=== PATIENT | male | born 1980 | race Caucasian/White ===

== ENCOUNTER 2017-05-16 18:06 | Emergency (ER) | payer OTHER ==
[~2017-05-16] VITALS: Ht 175.3 cm; Wt 88.5 kg
[2017-05-16 18:09] VITALS: Ht 175.3 cm; Wt 88.5 kg
[2017-05-16] MEDS ORDERED: IBUPROFEN 600 MG TAB PO ONE (18:30)
--- NOTE | 2017-05-16 19:37 | RADRPT ---
PROCEDURE: XR Ankle. CLINICAL INDICATION: Left ankle pain. Injury. TECHNIQUE: Three views of the left ankle were submitted for interpretation. COMPARISON: None. FINDINGS: 0.1 x 1.1 cm calcific density overlies the dorsal aspect of the tarsometatarsal joints on lateral vi ew and may represent a flake fracture. Bony structures otherwise intact. The joint spaces are intact. The bony mineralization is normal. Multiple punctate calcific density foreign bodies are seen overlying the dorsal aspect of the foot n umbering more than 10 in quantity and measuring 1-2 mm each. IMPRESSION: 1. Thin linear calcific density overlying the soft tissues of the dorsal aspect of the foot at the metatarsal phalangeal joints, seen only on lateral view and represent a flake fracture or radiopaque foreign body. 2. Numerous 1-2 mm radiopaque foreign bodies overlying soft tissues of the dorsal aspect of the mid foot, some of which project over bone and may be within bone. This finding can be clarified with CT scan, if clinically indicated. RPTAT: [facility] .Nicola Ferrer MD, Date Time Electronically viewed and signed by .Nicola Ferrer MD, on 05/16/2017 19:37 .M/
[2017-05-16] MEDS ORDERED: IBUP-1542 PO (19:59)
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
[2017-05-16 20:08] VITALS: BP 145/76; PULSE 86; RESP 17; TEMP 98.3
== END 2017-05-16 20:08 | disposition home or self-care (01) ==
LOC: FTE 18:06
DX: S99.912A Unspecified injury of left ankle, initial encounter (principal); X50.9XXA Other and unspecified overexertion or strenuous movements or postures, initial encounter; Y92.9 Unspecified place or not applicable
CPT/HCPCS: 73610; Z7502; Z7610

== ENCOUNTER 2017-08-29 10:13 | Emergency (ER) | payer OTHER ==
[~2017-08-29] VITALS: Ht 175.3 cm; Wt 92.8 kg
[~2017-08-29 10:13] MED LIST: IBUP-1542 PO
[2017-08-29 10:14] VITALS: Ht 175.3 cm; Wt 92.8 kg
[2017-08-29] MEDS ORDERED: DIPHTH/TET/ACEL PERTUSS (ADULT) 0.5 ML VIAL IM* ONE (11:00)
[2017-08-29] MEDS ORDERED: LIDOCAINE 1% (MDV) 20 ML INJ SC ONE (11:00)
[2017-08-29] MEDS ORDERED: HYDROCODONE/APAP (5/325) TAB PO ONE (11:00)
--- NOTE | 2017-08-29 11:05 | ERD ---
ER Documentation Chief Complaint Chief Complaint Lac on left 1st finger x 20 minutes, cut at work with stretch box tender HPI This is a 36-year-old male presents to the emergency department today complaining of a laceration to his left thumb after cutting of with a stretch box tender at work lately 30 minutes prior to arrival. States he is not up-to-date on his vaccines. States he has not taken a medication for the pain. ROS All systems reviewed and are negative except as per history of present illness. Medications Home Meds Active Scripts Cephalexin* (Keflex*) 500 Mg Capsule, 500 MG PO QID for 7 Days, CAP Prov:MAIA BETANCOURT PA-C 08/29/17 Acetaminophen* (Tylophen*) 500 Mg Capsule, 1 CAP PO Q6H Y for PAIN AND OR ELEVATED TEMP, #30 CAP Prov:MAIA BETANCOURT PA-C 08/29/17 Naproxen* (Naprosyn*) 500 Mg Tablet, 500 MG PO BID Y for PAIN AND/OR INFLAMMATION, #30 TAB Prov:MAIA BETANCOURT PA-C 08/29/17 Ibuprofen* (Motrin*) 600 Mg Tab, 600 MG PO Q6, #20 TAB Prov:ROMAN LUCERO MD 05/16/17 Allergies Allergies: Coded Allergies: No Known Allergy (Unverified , 08/29/17) PMhx/Soc Medical and Surgical Hx: pt denies Medical Hx, pt denies Surgical Hx History of Surgery: No Anesthesia Reaction: No Hx Neurological Disorder: No Hx Respiratory Disorders: No Hx Cardiac Disorders: No Hx Psychiatric Problems: No Hx Miscellaneous Medical Probl: No Hx Alcohol Use: No Hx Substance Use: No Hx Tobacco Use: No Physical Exam Vitals Vital Signs Date Time Temp Pulse Resp B/P Pulse Ox O2 Delivery O2 Flow Rate FiO2 08/29/17 10:14 98.3 97 18 140/88 99 Physical Exam Const: NAD Head: Atraumatic Eyes: Normal Conjunctiva ENT: Normal External Ears, Nose and Mouth. Neck: Full range of motion..~ No meningismus. Resp: Clear to auscultation bilaterally Cardio: Regular rate and rhythm, no murmurs Skin: Left thumb with evidence of a 3 cm laceration that is curved along medial border. MSK: left thumb with no obvious deformity. Evidence of laceration distal aspect of thumb. Tenderness to palpation diffusely over IP and MCP joint. Full active range of motion. Pulses 2+. Distal neurovascularly intact. Neur: Awake and alert Psych: Normal Mood and Affect Results 24 hrs Current Medications Medications (Trade) Dose Ordered Sig/Sandra Route PRN Reason Start Time Stop Time Status Last Admin Dose Admin Acetaminophen/ Hydrocodone Bitart ([place] (5/325)) 1 tab ONCE ONCE PO 08/29/17 11:00 08/29/17 11:01 DC 08/29/17 11:14 Diphtheria/ Tetanus/Acell Pertussis (Adacel) 0.5 ml ONCE ONCE IM* 08/29/17 11:00 08/29/17 11:01 DC 08/29/17 11:13 Lidocaine (Xylocaine 1% (Mdv) 20 ml) 20 ml ONCE ONCE SC 08/29/17 11:00 08/29/17 11:01 DC DIAGNOSTIC IMAGING REPORT Patient: AIDE PIERSON : 1980 Age: 36 Sex: M MR #: [id number] DOS: 08/29/17 0000 Ordering MD: MAIA BETANCOURT PA-C Location: [facility] Room/Bed: PROCEDURE: XR Thumb. CLINICAL INDICATION: Left thumb pain following injury, laceration TECHNIQUE: Three views of the left thumb are available for review. COMPARISON: None available FINDINGS: The osseous structures demonstrate normal alignment and mineralization. No acute fracture or dislocation is seen. The joint spaces are well maintained. The soft tissues are unremarkable. There is a tiny, 1 mm radiopaque density within the volar soft tissues overlying the first distal phalanx. IMPRESSION: Tiny, 1 mm radiopaque density within the volar soft tissues overlying the first distal phalanx. No acute fracture identified. RPTAT: HH .Kristy Donovan MD, Date Time Electronically viewed and signed by .Kristy Donovan MD, on 08/29/2017 12 :32 .G/ CC: MAIA BETANCOURT PA-C Procedures/MDM This is a right-handed 36-year-old male who presents the emergency department today complaining of a laceration that he sustained with a stretch box tender on his left thumb approximately 30 minutes prior to arrival. On physical exam there is evidence of a 3 cm superficial curved laceration along his left thumb that goes into his fingernail. Patient thinks that he "hit the bone". Patient did have some tenderness over his MCP and IP joint and therefore did obtain imaging. Also explained to the patient he requires sutures at this time to help control the bleeding as well. I explained the risks and benefits of the procedure and patient agreed to proceed. Patient tolerated procedure well and there were no complications. Tetanus was updated here in the emergency department Per the radiology report images of the left thumb show a tiny 1 mm radiopaque density within the volar soft tissues overlying the first distal phalanx there is no acute fracture identified. There is no dislocation. 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 I think this is likely the source of the 1 mm radiopaque density as there is no evidence of foreign body in the laceration. I do Not feel the area needs to be explored further. Laceration Repair by me: Anesthesia: 1% lidocaine locally 4 cc Location: left thumb Tendon/Joint/Nerves: No injury Foreign body: None detected after copious irrigation and exploration Technique: 6 Simple Interrupted Sutures 4-0 nylon Complexity: No subcutaneous sutures/mucosal repair/ edge excision Post Closure Length: 3 cm Patient's bleeding was easily controlled in the department and there is no indication of anemia. No evidence of compartment syndrome, neurologic injury, vascular injury, open joint, tendon laceration, or foreign body. Patient is appropriate for outpatient follow up. 48 hour wound check. Scar minimization instructions given. Given a prescription for Keflex, Naprosyn and Tylenol for home. He is instructed return in 48 hours for wound check and again in 7-10 days for suture removal. He was also placed in a metal splint so that the area would not bend. Neurovascular intact pre-and post splint application. At this time the patient is stable for discharge and outpatient management. Patient should follow up with their PCP in the next 1-2 days. They may return to the emergency department sooner for any persistent or worsening of symptoms. Patient understood and agreed with the plan. Patient with Dr. Tran and he is in agreement with the plan. Departure Diagnosis: Primary Impression: Laceration Condition: MAIA James PA-C Aug 29, 2017 11:05
--- NOTE | 2017-08-29 12:32 | RADRPT ---
PROCEDURE: XR Thumb. CLINICAL INDICATION: Left thumb pain following injury, laceration TECHNIQUE: Three views of the left thumb are available for review. COMPARISON: None available FINDINGS: The osseous structures demonstrate normal alignment and mineralization. No acute fracture or disloca tion is seen. The joint spaces are well maintained. The soft tissues are unremarkable. There is a tiny, 1 mm radiopaque density within the volar soft tissues overlying the first distal phalanx. IMPRESSION: Tiny, 1 mm radiopaque density within the volar soft tissues overlying the first distal phalanx. No acute fracture identified. RPTAT: HH .Kristy Donovan MD, MD Date Time Electronically viewed and signed by .Kristy Donovan MD, on 08/29/2017 12:32 .G/
[2017-08-29] MEDS ORDERED: NAPR-260 PO (13:22)
[2017-08-29] MEDS ORDERED: ACET500C5 PO (13:23)
[2017-08-29] MEDS ORDERED: CEPH-443 PO (13:23)
== END 2017-08-29 14:25 | disposition home or self-care (01) ==
LOC: FTE 10:13
DX: S61.012A Laceration without foreign body of left thumb without damage to nail, initial encounter (principal); W26.8XXA Contact with other sharp object(s), not elsewhere classified, initial encounter; Y92.89 Other specified places as the place of occurrence of the external cause; Z23 Encounter for immunization
CPT/HCPCS: 12002; 73140; 90471; 90715; Z7502; Z7610

== ENCOUNTER 2017-08-31 16:42 | Emergency (ER) | payer OTHER ==
[~2017-08-31] VITALS: Ht 175.3 cm; Wt 93.5 kg
[~2017-08-31 16:42] MED LIST changes: +ACET500C5 PO; +CEPH-443 PO; +NAPR-260 PO
[2017-08-31 16:44] VITALS: Ht 175.3 cm; Wt 93.5 kg
--- NOTE | 2017-08-31 17:43 | ERD ---
ER Documentation Chief Complaint Chief Complaint left thumb 2 day wound check HPI 36-year-old male who presents emergency department for a wound check to her left thumb laceration with 6 simple interrupted sutures that was placed 2 days ago. Denies headache, dizziness, blurred vision, neck pain, shoulder pain, chest pain, abdominal pain, nausea, vomiting, constipation, diarrhea, loss of bowel and bladder control, numbness or tingling sensation, fever, chills. ROS All systems reviewed and are negative except as per history of present illness. Medications Home Meds Active Scripts Hydrocodone/Acetaminophen ([place] 5-325 Tablet) 1 Each Tablet, 1 EACH PO Q4 Y for PAIN, #7 TAB Prov:PASILABANASIFAR F 08/31/17 Sulfamethoxazole/Trimethoprim* (Bactrim Ds* Tablet) 1 Each Tablet, 1 TAB PO BID , #14 TAB Prov:DIONNEILABAN,ASIFAR F 08/31/17 Cephalexin* (Keflex*) 500 Mg Capsule, 500 MG PO QID for 7 Days, CAP Prov:MAIA BETANCOURT PA-C 08/29/17 Acetaminophen* (Tylophen*) 500 Mg Capsule, 1 CAP PO Q6H Y for PAIN AND OR ELEVATED TEMP, #30 CAP Prov:MAIA BETANCOURT PA-C 08/29/17 Naproxen* (Naprosyn*) 500 Mg Tablet, 500 MG PO BID Y for PAIN AND/OR INFLAMMATION, #30 TAB Prov:MAIA BETANCOURT PA-C 08/29/17 Ibuprofen* (Motrin*) 600 Mg Tab, 600 MG PO Q6, #20 TAB Prov:ROMAN LUCERO MD 05/16/17 Allergies Allergies: Coded Allergies: No Known Allergy (Unverified , 08/29/17) PMhx/Soc History of Surgery: No Anesthesia Reaction: No Hx Neurological Disorder: No Hx Respiratory Disorders: No Hx Cardiac Disorders: No Hx Psychiatric Problems: No Hx Miscellaneous Medical Probl: No Hx Alcohol Use: No Hx Substance Use: No Hx Tobacco Use: No Smoking Status: Never smoker Physical Exam Vitals Vital Signs Date Time Temp Pulse Resp B/P Pulse Ox O2 Delivery O2 Flow Rate FiO2 08/31/17 16:44 105 18 141/73 97 Physical Exam Const: Well-appearing. Not in acute distress. Head: Atraumatic Eyes: Normal Conjunctiva ENT: Normal External Ears, Nose and Mouth. Neck: Full range of motion..~ No meningismus. Resp: Clear to auscultation bilaterally Cardio: Regular rate and rhythm, no murmurs Abd: Soft, non tender, non distended. Normal bowel sounds Skin: No petechiae or rashes. Left thumb: No swelling. No discoloration. Not warm to touch. 3 cm laceration to the dorsal area of left thumb with 6 Simple Interrupted Sutures. No dehiscence. No discharge. No bleeding. Has good flexion and extension of left thumb with a score of 5/5. No evidence of tendon injury. No neurovascular deficits. Back: No midline or flank tenderness Ext: No cyanosis, or edema Neur: Awake and alert Psych: Normal Mood and Affect Procedures/MDM Differential diagnosis: I have low suspicion for site infection, dehiscence, wound infection due to my physical exam. Final diagnosis: Wound check. Prescription: [place]. Follow-up with PCP in the next 24-48 hours. Come back in 2 days for a wound check. Come back in 7-8 days for suture removal. Come back here in the emergency department for any new symptoms or any worsening of symptoms. All questions and concerns are answered. Patient verbalized understanding and agreed with the plan of care. Hemodynamically stable on discharge. Departure Diagnosis: Primary Impression: Encounter for wound re-check Condition: Stable Additional Instructions: Follow-up with PCP in the next 24-48 hours. Come back in 2 days for a wound check. Come back in 7-8 days for suture removal. Come back here in the emergency department for any new symptoms or any worsening of symptoms. All questions and concerns are answered. Patient verbalized understanding and agreed with the plan of care. CARMEN FLORES Aug 31, 2017 17:43
[2017-08-31] MEDS ORDERED: HYDR-906 PO (17:44)
[2017-08-31] MEDS ORDERED: SULF1TAB31 PO (17:44)
== END 2017-08-31 18:01 | disposition home or self-care (01) ==
LOC: FTE 16:42
DX: L53.9 Erythematous condition, unspecified (principal)
CPT/HCPCS: 99284